=== PATIENT | male | born 1995 | race Caucasian/White ===

== ENCOUNTER 2021-02-26 17:30 | Emergency (ER) | payer OTHER ==
[2021-02-26 18:24] LABS: BASOPHIL 0.6 % (0-2); HCT 47.3 % (42.0-52.0); HGB 16.7 g/dl (13.2-18.0); LYMPHOCYTE 38.9 % (15-48); MCH 32.4 pg (25.0-31.0); MCHC 35.3 g/dL (32.0-36.0); MCV 91.7 fL (78.0-100.0); MONOCYTE 7.4 % (0-12); MPV 10.8 fL (6.0-9.5); NEUTROPHIL 48.9 % (41-80); NRBC 0; PLT 249 K/uL (150-400); RBC 5.16 M/uL (4.70-6.00); RDW 11.8 % (11.5-14.0); WBC 10.2 K/uL (4.0-10.5)
[2021-02-26 18:32] LABS: BILIRUBIN NEGATIVE (NEGATIVE); BLOOD NEGATIVE Ery/uL (NEGATIVE); CLARITY CLEAR (CLEAR); COLOR YELLOW (YELLOW); GLUCOSE (U) NORMAL (NORMAL); LEUKOCYTES NEGATIVE Leu/uL (NEGATIVE); NITRITE NEGATIVE (NEGATIVE); PROTEIN NEGATIVE (NEGATIVE); SPECIFIC GRAVITY 1.025 (1.001-1.030)
[2021-02-26 18:35] LABS: MARIJUANA (THC) POSITIVE (NEGATIVE)
[2021-02-26 18:36] LABS: AMPHETAMINES NEGATIVE (NEGATIVE); BARBITURATES NEGATIVE (NEGATIVE); ECSTASY (MDMA) NEGATIVE (NEGATIVE); METHADONE NEGATIVE (NEGATIVE); OPIATES NEGATIVE (NEGATIVE); OXYCODONE NEGATIVE (NEGATIVE)
[2021-02-26 18:40] LABS: ALBUMIN 4.3 g/dL (3.4-5.0); BILIRUBIN - TOTAL 0.4 mg/dL (0.2-1.0); BUN/CREAT RATIO (CALC) 12.7 RATIO; CREATININE 0.79 mg/dL (0.67-1.17); GLOBULIN (CALCULATION) 3.6 g/dL; TOTAL PROTEIN 7.9 g/dL (6.4-8.2)
== END 2021-02-27 03:40 | disposition other institution (70) ==
LOC: FER 17:30
PROVIDERS: Physician Assistant
DX: R45.851 Suicidal ideations (principal); F19.10 Other psychoactive substance abuse, uncomplicated; Z20.822 Contact with and (suspected) exposure to COVID-19
CPT/HCPCS: 36415; 80053; 80305; 81003; 85025; 99285; G0480; U0002